=== PATIENT | male | born 1950 | race Hispanic/Latino ===

== ENCOUNTER 2019-03-11 07:42 | Inpatient (IN) | payer MEDICARE ==
[2019-03-11] MEDS ORDERED: ECOTRIN PO ONE (09:00)
[2019-03-11] MEDS ORDERED: NACL 0.9% 500 ML 500 ML IV SCH (09:00)
[2019-03-11 09:01] LABS: Basophils % (Auto) 0.4 % (0.0-1.8); Eosinophils # (Auto) 0.2 K/mm3 (0.0-0.4); Eosinophils % (Auto) 3.7 % (0.0-4.3); Hematocrit 41.6 % (35.5-45.6); Hemoglobin 14.5 gm/dl (11.8-15.2); Lymphocytes # (Auto) 1.7 K/mm3 (1.2-5.4); Lymphocytes % (Auto) 34.4 % (13.4-35.0); Mean Corpuscular HGB Conc 35 % (32-34); Mean Corpuscular Volume 89 fl (84-94); Monocytes # (Auto) 0.5 K/mm3 (0.0-0.8); Monocytes % (Auto) 10.7 % (0.0-7.3); Platelet Count 214 K/mm3 (140-440); Red Blood Count 4.69 M/mm3 (3.65-5.03); Red Cell Distribution Width 13.3 % (13.2-15.2)
[2019-03-11 09:28] LABS: Calcium 9.3 mg/dL (8.4-10.2)
[2019-03-11] MEDS ORDERED: SUBLIMAZE ONE (10:52)
[2019-03-11] MEDS ORDERED: HEPARIN/NS 5000 UNIT/500ML(CATH LAB) 1,000 ML IR ONE (10:52)
[2019-03-11] MEDS ORDERED: CALAN ONE (10:52)
[2019-03-11] MEDS ORDERED: VERSED ONE (10:52)
[2019-03-11] MEDS ORDERED: HEPARIN 10,000 UNITS/10 ML ONE (10:52)
[2019-03-11] MEDS ORDERED: NITROGLYCERIN SYRINGE 3 ML ONE (10:52)
[2019-03-11] MEDS ORDERED: XYLOCAINE 2% INFILTRATI ONE (10:52)
[2019-03-11] MEDS ORDERED: HEPARIN/ 0.45% NACL-25,000 UNIT/500 ML 25,000 UNIT/500 ML BAG ONE (11:30)
--- NOTE | 2019-03-11 12:07 | Short Stay Summary ---
Short Stay Documentation Date of service: 03/11/19 - History H&P: obtained from office - Allergies and Medications Current Medications: Allergies No Known Allergies Allergy (Verified 03/11/19 08:32) Home Medications Medication Instructions Recorded Confirmed Last Taken Type Amlodipine Besylate [Norvasc] 2.5 mg PO DAILY 03/11/19 03/11/19 03/11/19 History 2.5mg Eql [place]-3 Fish Oil 1,000 mg 2,000 mg PO BID 03/11/19 03/11/19 03/11/19 History 2000mg Esomeprazole Magnesium [Nexium 20 mg PO DAILY 03/11/19 03/11/19 03/11/19 History 24Hr] 20mg Fenofibrate 160 mg PO DAILY 03/11/19 03/11/19 03/11/19 History 160mg Lisinopril [Zestril] 40 mg PO DAILY 03/11/19 03/11/19 03/11/19 History 40mg Metoprolol Succinate [Kapspargo 25 mg PO DAILY 03/11/19 03/11/19 03/11/19 History Sprinkle] 25mg Pantoprazole [Protonix TAB] 20 mg PO DAILY 03/11/19 03/11/19 03/11/19 History 20mg Rosuvastatin (Nf) [Crestor] 20 mg PO DAILY 03/11/19 03/11/19 03/11/19 History 20mg Active Medications Sodium Chloride (Nacl 0.9% 500 Ml) 500 mls @ 50 mls/hr IV DIRECT ELY Stop: 03/11/19 18:59 Last Admin: 03/11/19 09:11 Dose: 50 mls/hr Documented by: - Brief post op/procedure progress note Date of procedure: 03/11/19 Pre-op diagnosis: unstable angina Post-op diagnosis: same Procedure: see report Anesthesia: local Estimated blood loss: none Pathology: none - Disposition Condition at discharge: Good Disposition: DC/TX-70 ANOTHER TYPE HLTHCARE - Discharge Diagnoses (1) Unstable angina Status: Acute (2) Hypertension Status: Chronic Qualifiers: Hypertension type: essential hypertension Qualified Code(s): I10 - Essential (primary) hypertension (3) Hyperlipemia, mixed Status: Chronic (4) CAD (coronary artery disease) Status: Acute Qualifiers: Coronary Disease-Associated Artery/Lesion type: [place] artery [place] vs. t ransplanted heart: [place] heart Associated angina: with unstable angina Qualified Code(s): I25.110 - Atherosclerotic heart disease of [place] coronary artery with unstable angina pectoris Short Stay Discharge Plan Activity: other (transfer to [place]) Diet: low fat, low cholesterol, low salt Follow up with: GREGORIA JOEL MD [Primary Care Provider] - 7 Days
--- NOTE | 2019-03-11 12:27 | Cardiac Catherization Report ---
LEFT HEART CATHETERIZATION CLINICAL INFORMATION: This is a 68-year-old gentleman with hypertension, hyperlipidemia, for last 2 months have been having progressive shortness of breath and chest pressure with exertion, has been on beta stacy, but unable to take nitrates. Has yesterday a stress test, within 2 minutes of Tung protocol extreme ST depressions, and the patient is here for left heart catheterization for chest pain with highly positive stress test. Left heart catheterization performed with moderate sedation, 1 mg Versed, 50 mcg of fentanyl. Total sedation time is 17 minutes, started 11:11 a.m., finished 11:28 a.m. Left heart catheterization performed via the right radial artery, sterile technique, local anesthesia, 6-Tuvaluan radial sheath inserted. Left system engaged with a JL3.5 catheter with following findings. Left main is large and patent, bifurcates into a large LAD, proximally, patent with an ostial diagonal 1, small to medium caliber vessel 90%, then after that the LAD is 100% with HOLLY 0-1 flow in the LAD and diagonal 2 is 100% with left to left collaterals feeding into a [id number] caliber diagonal 2. Then, circumflex proximal 40%, goes to a large OM1 that is patent, distal circumflex is a medium caliber vessel, patent. RCA engaged with JR4 catheter, large, dominant vessel, is patent from proximally and distally, and PDA, PLV are medium caliber vessels. You see extensive collateralization from the PDA feeding into the distal LAD all the way up to the bifurcation. LV gram done in STIVEN and VALLADARES view shows normal LV function, LVEDP of 20 mmHg, LV is 132/20. Aortic is 126/75. No gradient across the aortic valve on pullback. 5-Tuvaluan catheters were taken over guidewire, 6-Tuvaluan radial sheath was discontinued. Radial dressing applied. No hematoma, no bleeding. SUMMARY: 1. The patient has significant trifurcation disease of ostial diagonal 1, mid LAD 99% with HOLLY 1 flow, almost LAD 100% with diagonal-2 100%. You see extensive left to left collaterals feeding, diagonal 2 and right to left collaterals filling the distal LAD. Circumflex proximal 40%, OM1 patent, RCA large and patent with normal LV function. 2. In view of the patient accelerating symptoms, he will be transferred to [place] for bypass surgery. JOB# [id number] MARYBEL/DARIUS
[2019-03-11] MEDS ORDERED: HEPARIN/ 0.45% NACL-25,000 UNIT/500 ML 25,000 UNIT/500 ML BAG IV SCH (18:00)
[2019-03-11 20:55] VITALS: BP 141/78
[2019-03-11] MEDS ORDERED: ZOFRAN IV PRN (21:26)
[2019-03-11] MEDS ORDERED: TYLENOL PO PRN (21:26)
[2019-03-11] MEDS ORDERED: DILAUDID IV PRN (21:26)
[2019-03-11] MEDS ORDERED: PERCOCET 5/325 PO PRN (21:26)
[2019-03-11] MEDS ORDERED: SODIUM CHLORIDE FLUSH SYRINGE 10 ML IV PRN (21:26)
[2019-03-11] MEDS ORDERED: TOPROL XL PO SCH (21:30)
[2019-03-11] MEDS ORDERED: PROTONIX PO SCH (21:30)
[2019-03-11] MEDS ORDERED: NORVASC PO SCH (21:30)
[2019-03-11] MEDS ORDERED: SODIUM CHLORIDE FLUSH SYRINGE 10 ML IV SCH (22:00)
[2019-03-11] MEDS ORDERED: ZESTRIL PO SCH (22:00)
[2019-03-11] MEDS ORDERED: NACL 0.45% 1000 ML 1,000 ML IV SCH (22:00)
--- NOTE | 2019-03-12 05:21 | Event Note ---
Date: 03/11/19 See H/p in reports Unstable angina S/p C
--- NOTE | 2019-03-12 05:40 | Discharge Summary ---
Providers - Providers Date of Admission: 03/11/19 17:55 Date of discharge: 03/12/19 Attending physician: GERALDINE SOTELO 03/11/19 12:04 Consult to Cardiac Rehabilitation [CONS] Routine Reason For Exam: Cardiac Rehab Evaluation 03/11/19 21:26 Consult to Physician [CONS] Routine Comment: Consulting Provider: KALEN CHRISTENSEN Physician Instructions: Reason For Exam: unstable angina Primary care physician: GREGORIA JOEL Hospitalization Condition: Good Pertinent studies: [facility] --LAD 100 percent blockage Procedures: [facility] Hospital course: Admitted for Unstable angina.CP on exertion.Evaluated in [facility] [place] Heart offices and taken to brush clearing laborer by Dr Fitzpatrick.Had [facility] which showed 100 percent blockage of LAD and Circumfles disease.Transfer to [place] initiated for CABG.Stable at transfer.Transferred with Heparin drip. Discharge Diagnosis: Unstable Angina HTN HLD CAD Disposition: DC/TX-70 ANOTHER TYPE HLTHCARE Core Measure Documentation - Palliative Care Palliative Care/ Comfort Measures: Not Applicable - Core Measures Any of the following diagnoses?: none Exam - Constitutional Vitals: Temp Pulse Resp BP Pulse Ox 97.9 F 68 16 141/78 93 03/11/19 20:46 03/11/19 20:46 03/11/19 20:46 03/11/19 20:46 03/11/19 20:46 Plan Follow up with: GREGORIA JOEL MD [Primary Care Provider] - 7 Days
--- NOTE | 2019-03-12 05:57 | History and Physical Report ---
CHIEF COMPLAINT: Left-sided chest pain since a.m. HISTORY OF PRESENT ILLNESS: A 68-year-old male, who presents to the [facility] Heart office after being referred by Dr. Degroot for cardiac evaluation because of chest discomfort and palpitations with exertion. The patient has history of hypertension, coronary artery disease and dyslipidemia. Because of the chest pain on exertion and EKG changes, the patient was taken directly to the offset label rewinder at [facility] and had a left heart catheterization, which showed 100% LAD blockage and also circumflex blockage about 90% because of which the patient was started on heparin drip, admitted to telemetry and transfer to [place] was initiated. The patient's chest pain was better at the time of my evaluation, but chest pain is recurrent and dull. It is 5-6 in intensity. PAST MEDICAL HISTORY: Hypertension, coronary artery disease, hyperlipidemia and hypertriglyceridemia. CURRENT MEDICATIONS: Fenofibrate 150 mg daily, Imdur 30 mg daily, lisinopril 40 mg daily, nitroglycerin p.r.n., Norvasc 10 mg daily, omega 3 one tablet b.i.d., Protonix 20 mg daily, rosuvastatin 20 mg daily, Toprol-XL 25 mg daily. PAST SURGICAL HISTORY: Significant for biceps rupture repair on the right arm. FAMILY HISTORY: Severe coronary artery disease, especially at 61, had an NH at 61. SOCIAL HISTORY: He used to smoke until 20 years ago, pack a day. REVIEW OF SYSTEMS: Significant for chest pain on exertion and palpitations. Otherwise, review of systems negative. PHYSICAL EXAMINATION: GENERAL: Elderly male, cooperative during examination, cheerful. VITAL SIGNS: Blood pressure is 141/86, temperature is 97.9, pulse is 74, respirations are 16, sats are 93%. HEENT: Unremarkable. Pupils are equal and reactive. NECK: Supple, no lymphadenopathy, no thyromegaly. LUNGS: Clear to auscultation and percussion. Good air entry. CARDIOVASCULAR: S1, S2 heard. No gallop, no murmur, no rub. Apical impulse in left fifth intercostal space and midclavicular line. ABDOMEN: Soft and benign. No hepatosplenomegaly. No guarding, no rigidity. Hernial orifices are normal. EXTREMITIES: Good pedal pulses. No pedal edema. CENTRAL NERVOUS SYSTEM: Alert and oriented x 4, nonfocal exam. LABORATORY DATA: EKG shows a normal sinus rhythm. No acute ST-T wave changes. Heart rate of about 76 per minute. Left heart catheterization results showed LAD 100% blockage and circumflex blockage. ASSESSMENT AND PLAN: 1. Unstable angina. The patient on IV heparin drip. Transfer to [place] initiated. Continue heparin. 2. Hypertension. Continue lisinopril and Toprol and amlodipine. 3. Hyperlipidemia. Continue rosuvastatin and fenofibrate. 4. Coronary artery disease. Continue Imdur. 5. Deep vein thrombosis prophylaxis. The patient is already on heparin and GI prophylaxis. The patient on Protonix. [place] transfer initiated. JOB# [id number] VALDEMAR/NTS
[2019-03-12] MEDS ORDERED: TRICOR PO SCH (10:00)
== END 2019-03-11 23:55 | disposition short-term general hospital (02) | DRG 287 ==
LOC: CATHLABREC 07:42 → 4A 17:55
PROVIDERS: ADMIT Internal Medicine; ATTEND Internal Medicine
PROC: 4A023N7 Measurement of Cardiac Sampling and Pressure, Left Heart, Percutaneous Approach (ICD-10-PCS; principal; 2019-03-11)
PROC: B2111ZZ Fluoroscopy of Multiple Coronary Arteries using Low Osmolar Contrast (ICD-10-PCS; 2019-03-11)
PROC: B2151ZZ Fluoroscopy of Left Heart using Low Osmolar Contrast (ICD-10-PCS; 2019-03-11)
DX: I25.110 Atherosclerotic heart disease of native coronary artery with unstable angina pectoris (principal); E78.2 Mixed hyperlipidemia; I10 Essential (primary) hypertension; I25.82 Chronic total occlusion of coronary artery; E78.1 Pure hyperglyceridemia; Z79.899 Other long term (current) drug therapy; Z82.49 Family history of ischemic heart disease and other diseases of the circulatory system; Z87.891 Personal history of nicotine dependence
CPT/HCPCS: 36415; 80048; 83036; 85025; 85520; 85610; 85730; 93005; 93010; 93458; 96365; 96366; G0378; C1894; J1644; J2250; J3010; J7040; Q9967